=== PATIENT | male | born 1955 | race American Indian/Alaskan Native ===

== ENCOUNTER 2017-02-06 02:32 | Emergency (ER) | payer OTHER ==
[2017-02-06 02:42] VITALS: BP 143/91
[2017-02-06] MEDS: NORCO 5/325 PO ONE (02:54)
[2017-02-06] MEDS ORDERED: NORCO 5/325 ONE (02:54)
--- NOTE | 2017-02-06 04:58 | Emergency Department Report ---
ED General Adult HPI - General Chief complaint: Fall Stated complaint: FALL Time Seen by Provider: 02/06/17 04:23 Source: patient Mode of arrival: Ambulatory Limitations: No Limitations - History of Present Illness Initial comments: pt is a 61 y/o aam with hx of arthritis who presents s/p glf in bathroom landing on left hip today pt denies loc no laceration abrasions or deformities complains of bilat shoulder and left hip pain, pain is 7/10 burning pain is radiating from left low back to left LLE , pt denies weakness no paralysis no loss or decrease in bowel or bladder function, Onset/Timin -: hour(s) Location: back, pelvis, upper extremity Radiation: non-radiation, distal Severity scale (0 -10): 4 Quality: burning, aching Consistency: constant Improves with: rest Worsens with: movement Associated Symptoms: denies: confusion, chest pain, cough, diaphoresis, fever/ chills, headaches, loss of appetite, malaise, nausea/vomiting, rash, seizure, shortness of breath, syncope, weakness Treatments Prior to Arrival: none - Related Data Home Medications Medication Instructions Recorded Confirmed Last Taken Oxycodone HCl/Acetaminophen 1 tab PO DAILY 11/13/14 11/26/14 11/25/14 21:00 [OxyCODONE-Acetaminophen 7.5-325] Tamsulosin HCl [Tamsulosin HCl] 1 tab PO PRN 11/13/14 11/26/14 Unknown Previous Rx's Medication Instructions Recorded Last Taken Type Acetaminophen/Codeine [Tylenol 1 tab PO Q8H PRN #5 tab 02/06/17 Unknown Rx /Codeine # 3 tab] Cyclobenzaprine [Flexeril 10 MG 10 mg PO ONCE PRN #30 tablet 02/06/17 Unknown Rx TAB] Diclofenac Sodium [Voltaren] 1 applic TP TID PRN #1 tube 02/06/17 Unknown Rx Allergies Allergy/AdvReac Type Severity Reaction Status Date / Time No Known Allergies Allergy Unverified 11/06/14 10:56 ED Review of Systems ROS: Stated complaint: FALL Other details as noted in HPI Constitutional: denies: chills, fever Eyes: denies: eye pain, eye discharge, vision change ENT: denies: ear pain, throat pain Respiratory: denies: cough, shortness of breath, wheezing Cardiovascular: denies: chest pain, palpitations Endocrine: no symptoms reported Gastrointestinal: denies: abdominal pain, nausea, diarrhea Genitourinary: denies: urgency, dysuria Musculoskeletal: back pain, arthralgia, myalgia. denies: joint swelling Skin: denies: rash, lesions Neurological: denies: headache, weakness, numbness, paresthesias, confusion, abnormal gait, vertigo Psychiatric: denies: anxiety, depression Hematological/Lymphatic: denies: easy bleeding, easy bruising ED Past Medical Hx - Past Medical History Previous Medical History?: Yes Hx Hypertension: No Hx Heart Attack/AMI: No Hx GERD: Yes Hx Liver Disease: No Hx Renal Disease: No Hx Sickle Cell Disease: No Hx Arthritis: Yes (NECK/BACK) Hx Seizures: No Hx Asthma: No Hx HIV: No - Surgical History Past Surgical History?: Yes Additional Surgical History: left shoulder - Social History Smoking Status: Former Smoker Substance Use Type: Marijuana - Medications Home Medications: Home Medications Medication Instructions Recorded Confirmed Last Taken Type Oxycodone HCl/Acetaminophen 1 tab PO DAILY 11/13/14 11/26/14 11/25/14 21:00 History [OxyCODONE-Acetaminophen 7.5-325] Tamsulosin HCl [Tamsulosin HCl] 1 tab PO PRN 11/13/14 11/26/14 Unknown History Acetaminophen/Codeine [Tylenol 1 tab PO Q8H PRN #5 tab 02/06/17 Unknown Rx /Codeine # 3 tab] Cyclobenzaprine [Flexeril 10 MG 10 mg PO ONCE PRN #30 tablet 02/06/17 Unknown Rx TAB] Diclofenac Sodium [Voltaren] 1 applic TP TID PRN #1 tube 02/06/17 Unknown Rx ED Physical Exam - General Limitations: No Limitations General appearance: alert, in no apparent distress - Head Head exam: Present: atraumatic, normocephalic - Eye Eye exam: Present: normal appearance, PERRL, EOMI Pupils: Present: normal accommodation - ENT ENT exam: Present: normal exam, mucous membranes moist, TM's normal bilaterally , normal external ear exam - Neck Neck exam: Present: normal inspection, full ROM. Absent: tenderness, lymphadenopathy, thyromegaly - Respiratory Respiratory exam: Present: normal lung sounds bilaterally. Absent: respiratory distress, wheezes, chest wall tenderness - Cardiovascular Cardiovascular Exam: Present: regular rate, normal rhythm, normal heart sounds. Absent: systolic murmur, diastolic murmur, rubs, gallop - GI/Abdominal GI/Abdominal exam: Present: soft, normal bowel sounds. Absent: distended, tenderness, guarding, rebound, rigid, organomegaly, mass, bruit, pulsatile mass , hernia - Rectal Rectal exam: Present: deferred - Extremities Exam Extremities exam: Present: tenderness (left lateral hip tenderness no erythema no ecchymosis no swelling no deformity ), normal capillary refill. Absent: pedal edema, joint swelling, calf tenderness - Back Exam Back exam: Present: full ROM, tenderness (left sciatic notch ), CVA tenderness ( R), CVA tenderness (L), paraspinal tenderness. Absent: muscle spasm, vertebral tenderness, rash noted - Expanded Back Exam Expanded Back exam: Absent: saddle anesthesia Back exam: Sciatic Notch Tenderness: Left, Positive Straight Leg Raise: Left, Negative Straight Leg Raising: Right - Neurological Exam Neurological exam: Present: alert, oriented X3, CN II-XII intact, normal gait, reflexes normal. Absent: motor sensory deficit - Expanded Neurological Exam Expanded Patient oriented to: Present: person, place, time Speech: Present: fluid speech Cranial nerves: EOM's Intact: Normal, Gag Reflex: Normal, Tongue Deviation: Normal, Nystagmus: Normal, Facial Sensation: Normal Cerebellar function: Finger to Nose: Normal, Heel to Quinteros: Normal, Romberg: Normal Upper motor neuron: Darrian Neglect: Normal, Pronator Drift: Normal, Babinski Sign : Normal, Sensory Extinction: Normal Sensory exam: Upper Extremity Light Touch: Normal, Upper Extremity Pin Prick: Normal, Upper Extremity Temperature: Normal, UE 2 Point Discrimination: Normal, Lower Extremity Light Touch: Normal, Lower Extremity Pin Prick: Normal, Lower Extremity Temperature: Normal, LE 2 Point Discrimination: Normal Motor strength exam: RUE: 5, LUE: 5, RLE: 5, LLE: 5 DTR: bicep (R): 2+, bicep (L): 2+, tricep (R): 2+, tricep (L): 2+, knee (R): 2+ , knee (L): 2+, ankle (R): 2+, ankle (L): 2+ Best Eye Response (Aleksandra): (4) open spontaneously Best Motor Response (Aleksandra): (6) obeys commands Best Verbal Response (Aleksandra): (5) oriented Aleksandra Total: 15 - Psychiatric Psychiatric exam: Present: normal affect, normal mood - Skin Skin exam: Present: warm, dry, intact, normal color. Absent: rash ED Course Vital Signs 02/06/17 02:38 Temperature 98.6 F Pulse Rate 95 H Respiratory 17 Rate Blood Pressure 143/91 O2 Sat by Pulse 98 Oximetry ED Medical Decision Making - Radiology Data Radiology results: image reviewed no acute fracture, arthritic changes - Medical Decision Making pt is a 61 y/o aam with hx of arthritis who presents s/p glf in bathroom landing on left hip today pt denies loc no laceration abrasions or deformities complains of bilat shoulder and left hip pain, pain is 7/10 burning pain is radiating from left low back to left LLE , pt denies weakness no paralysis no loss or decrease in bowel or bladder function, exam: this is nontoxic appearing well hydrated well nourish aam bilat shoulder rom intact with minimal pain there is no swelling no deformity no ecchymosid testing tech equal shoulder drop, and rotation intact without weakness, LLE, noted mild left lateral low back muscle pain to deep palpation that radiates to buttock nad LLE there is no hip bursitis no swelling on deformity , pain is improved from 7/10 to 3/10 with ketorolac and flexeril given in ed plan : dc to self with short burst of Voltaren gel, tylenol #3 short burst, flexeril , pt will continue gabapentin as prescribed will follow up with Dr. Chowdary in 3 days pt verbalized agreement and understanding with discharge plan. Critical care attestation.: If time is entered above; I have spent that time in minutes in the direct care of this critically ill patient, excluding procedure time. ED Disposition Clinical Impression: Fall Qualifiers: Encounter type: initial encounter Qualified Code(s): W19.XXXA - Unspecified fall, initial encounter Disposition: DC-01 TO HOME OR SELFCARE Is pt being admited?: No Does the pt Need Aspirin: No Condition: Good Instructions: Sciatica (ED) Prescriptions: Acetaminophen/Codeine [Tylenol /Codeine # 3 tab] 1 tab PO Q8H PRN #5 tab PRN Reason: severe pain Cyclobenzaprine [Flexeril 10 MG TAB] 10 mg PO ONCE PRN #30 tablet PRN Reason: Muscle Spasm Diclofenac Sodium [Voltaren] 1 applic TP TID PRN #1 tube PRN Reason: Pain Referrals: PRIMARY CARE,MD [Primary Care Provider] - 3-5 Days Forms: Work/School Release Form(ED) Time of Disposition: 05:18
[2017-02-06] MEDS: TORADOL IM ONE (05:06)
[2017-02-06] MEDS: FLEXERIL PO ONE (05:06)
--- NOTE | 2017-02-06 05:28 | XRay Report ---
FINAL REPORT PROCEDURE: XR SHOULDER BILAT 2+V TECHNIQUE: BILATERAL shoulder radiographs including AP views in internal and external rotation and abduction. HISTORY: Fall, c/o L R Shoulder Pn, L Hip pn, Get Report COMPARISON: No prior studies are available for comparison. FINDINGS: Fracture(s) and/or Dislocation(s): None. Joint space(s): There is mild degenerative arthrosis of the glenohumeral joints bilaterally. There is a small spur of the right acromion process. There is evidence of previous rotator cuff repair surgery on the left with numerous radiopaque anchors in the left humeral head. Soft tissues: Normal. Bone mineralization: Normal. Foreign bodies: None. IMPRESSION: There are no fractures or malalignments. There is mild degenerative arthrosis of the glenohumeral joints bilaterally. There is a small spur of the right acromion process. There is evidence of previous rotator cuff repair surgery on the left with numerous radiopaque anchors in the left humeral head. Soft tissues are within normal limits.
--- NOTE | 2017-02-06 07:57 | XRay Report ---
FINAL REPORT PROCEDURE: XR HIP 2-3V LT TECHNIQUE: LEFT hip radiographs, AP and lateral views. HISTORY: Fall, c/o L R Shoulder Pn, L Hip pn, Get Report COMPARISON: No prior studies are available for comparison. FINDINGS: Fracture (s) and/or Dislocation(s): None . Joint space(s): There is moderate degenerative arthrosis of the left hip joint.. Soft tissues: Normal . Bone mineralization: Normal . Foreign bodies: None . IMPRESSION: There is degenerative arthrosis of the left hip. There is no fracture or dislocation..
== END 2017-02-06 05:20 | disposition home or self-care (01) ==
LOC: ED 02:32
DX: M25.552 Pain in left hip (principal); M25.511 Pain in right shoulder; K21.9 Gastro-esophageal reflux disease without esophagitis; M25.512 Pain in left shoulder; W01.0XXA Fall on same level from slipping, tripping and stumbling without subsequent striking against object, initial encounter; Y93.89 Activity, other specified; Y92.89 Other specified places as the place of occurrence of the external cause; Y99.8 Other external cause status
CPT/HCPCS: 73030; 73502; 96372; 99283; J1885

== ENCOUNTER 2017-10-17 19:14 | Emergency (ER) | payer OTHER ==
[2017-10-17 20:35] LABS: Basophils # (Auto) 0.1 K/mm3 (0.0-0.1); Basophils % (Auto) 1.1 % (0.0-1.8); Eosinophils # (Auto) 0.1 K/mm3 (0.0-0.4); Eosinophils % (Auto) 2.2 % (0.0-4.3); Hematocrit 40.3 % (35.5-45.6); Lymphocytes # (Auto) 2.2 K/mm3 (1.2-5.4); Mean Corpuscular HGB Conc 32 % (32-34); Mean Corpuscular Hemoglobin 27 pg (28-32); Mean Corpuscular Volume 84 fl (84-94); Monocytes # (Auto) 0.6 K/mm3 (0.0-0.8); Monocytes % (Auto) 11.1 % (0.0-7.3); Platelet Count 177 K/mm3 (140-440); Red Blood Count 4.79 M/mm3 (3.65-5.03)
--- NOTE | 2017-10-17 20:53 | Emergency Department Report ---
ED Medical Clearance HPI - General Chief complaint: Medical Clearance Stated complaint: LOWER BACK PAIN Time Seen by Provider: 10/17/17 20:43 Source: patient Mode of arrival: Ambulatory - History of Present Illness Initial comments: Patient is 61 years old male with a history of alcohol abuse and drug abuse mainly marijuana and cocaine. Patient presented to the ER after he checked into [facility] for alcohol and drug rehabilitation and he was asked to come to the ER for medical clearance. Patient denied any symptoms. Patient stated that he been drinking for the last 48 hours and using cocaine and marijuana also. He denied any suicidal, homicidal ideation. No visual or auditory hallucination. Patient stated that he did not have any history of psychiatric problem before. MD Complaint: medical clearance request Home medications: Home Medications Medication Instructions Recorded Confirmed Last Taken Oxycodone HCl/Acetaminophen 1 tab PO DAILY 11/13/14 11/26/14 11/25/14 21:00 [OxyCODONE-Acetaminophen 7.5-325] Tamsulosin HCl 1 tab PO PRN 11/13/14 11/26/14 Unknown Previous Rx's Medication Instructions Recorded Last Taken Type Acetaminophen/Codeine [Tylenol 1 tab PO Q8H PRN #5 tab 02/06/17 Unknown Rx /Codeine # 3 tab] Cyclobenzaprine [Flexeril 10 MG 10 mg PO ONCE PRN #30 tablet 02/06/17 Unknown Rx TAB] Diclofenac Sodium [Voltaren] 1 applic TP TID PRN #1 tube 02/06/17 Unknown Rx Allergies/Adverse reactions: Allergies Allergy/AdvReac Type Severity Reaction Status Date / Time No Known Allergies Allergy Unverified 11/06/14 10:56 ED Review of Systems ROS: Stated complaint: LOWER BACK PAIN Other details as noted in HPI Comment: All other systems reviewed and negative Constitutional: denies: chills, fever Respiratory: denies: cough, orthopnea, shortness of breath, SOB with exertion, SOB at rest, wheezing Cardiovascular: denies: chest pain, palpitations, dyspnea on exertion Gastrointestinal: denies: abdominal pain, nausea, vomiting, diarrhea Genitourinary: denies: urgency Neurological: denies: headache, weakness, numbness, paresthesias, confusion, abnormal gait Psychiatric: depression. denies: auditory hallucinations, visual hallucinations , homicidal thoughts, suicidal thoughts ED Past Medical Hx - Past Medical History Hx Hypertension: No Hx Heart Attack/AMI: No Hx GERD: Yes Hx Liver Disease: No Hx Renal Disease: No Hx Sickle Cell Disease: No Hx Arthritis: Yes (NECK/BACK) Hx Seizures: No Hx Asthma: No Hx HIV: No - Surgical History Additional Surgical History: left shoulder, L leg - Social History Smoking Status: Current Every Day Smoker Substance Use Type: Alcohol, Cocaine, Marijuana - Medications Home Medications: Home Medications Medication Instructions Recorded Confirmed Last Taken Type Oxycodone HCl/Acetaminophen 1 tab PO DAILY 11/13/14 11/26/14 11/25/14 21:00 History [OxyCODONE-Acetaminophen 7.5-325] Tamsulosin HCl 1 tab PO PRN 11/13/14 11/26/14 Unknown History Acetaminophen/Codeine [Tylenol 1 tab PO Q8H PRN #5 tab 02/06/17 Unknown Rx /Codeine # 3 tab] Cyclobenzaprine [Flexeril 10 MG 10 mg PO ONCE PRN #30 tablet 02/06/17 Unknown Rx TAB] Diclofenac Sodium [Voltaren] 1 applic TP TID PRN #1 tube 02/06/17 Unknown Rx ED Physical Exam - General Limitations: No Limitations General appearance: alert, in no apparent distress - Head Head exam: Present: atraumatic, normocephalic, normal inspection - Eye Eye exam: Present: normal appearance - ENT ENT exam: Present: normal exam, normal orophraynx, mucous membranes moist - Neck Neck exam: Present: normal inspection, full ROM. Absent: tenderness, meningismus, lymphadenopathy, thyromegaly - Respiratory Respiratory exam: Present: normal lung sounds bilaterally - Cardiovascular Cardiovascular Exam: Present: regular rate, normal rhythm, normal heart sounds - GI/Abdominal GI/Abdominal exam: Present: soft, normal bowel sounds. Absent: distended, tenderness, guarding, rebound, rigid, organomegaly, mass, bruit, pulsatile mass - Extremities Exam Extremities exam: Present: normal inspection, full ROM, normal capillary refill. Absent: calf tenderness - Back Exam Back exam: Present: normal inspection, full ROM - Neurological Exam Neurological exam: Present: alert, oriented X3, CN II-XII intact, normal gait, reflexes normal. Absent: motor sensory deficit - Skin Skin exam: Present: warm, intact, normal color ED Course Vital Signs 10/17/17 10/17/17 10/17/17 19:30 23:21 23:28 Temperature 98.2 F 98 F Pulse Rate 82 65 Respiratory 20 16 16 Rate Blood Pressure 128/77 Blood Pressure 136/74 [Right] O2 Sat by Pulse 98 99 Oximetry 10/17/17 10/18/17 23:58 05:02 Temperature 97.5 F L Pulse Rate 63 Respiratory 16 18 Rate Blood Pressure Blood Pressure 141/79 [Right] O2 Sat by Pulse 98 Oximetry ED Medical Decision Making - Lab Data Result diagrams: 10/17/17 19:51 10/17/17 19:51 - Medical Decision Making Recently evaluated by our psychiatric team and advised patient can be referred as an outpatient to [facility] for his alcohol and drug rehabilitation. ED Disposition Clinical Impression: Alcohol abuse, Cocaine abuse, Depression Disposition: DC/TX-65 PSY HOSP/PSY UNIT Is pt being admited?: No Condition: Stable Instructions: Abuse of Alcohol (ED), Polysubstance Abuse (ED) Referrals: PRIMARY CARE, [Primary Care Provider] - 3-5 Days
[2017-10-17 21:03] LABS: BUN/Creatinine Ratio 13; Blood Urea Nitrogen 16 mg/dL (9-20); Calcium 9.1 mg/dL (8.4-10.2); Hemolysis Index 1
[2017-10-17 21:23] LABS: Bilirubin,Urine NEG (Negative); Blood,Urine NEG (Negative); Color,Urine Yellow (Yellow); Mucus,Urine FEW /HPF; Protein,Urine <15 mg/dL mg/dL (Negative); WBC,Urine < 1.0 /HPF (0.0-6.0)
[2017-10-17 21:32] LABS: Amphetamine Screen,Urine PRESUMPTIVE NEGATIVE; Benzodiazepines Screen,Urine PRESUMPTIVE NEGATIVE; Cannabinoid Screen,Urine PRESUMPTIVE NEGATIVE; Methadone Screen,Urine PRESUMPTIVE NEGATIVE; Opiate Screen,Urine PRESUMPTIVE NEGATIVE
[2017-10-17 21:46] LABS: Cocaine Screen,Urine PRESUMPTIVE POSITIVE
[2017-10-17] MEDS ORDERED: TORADOL IM ONE (23:19)
[2017-10-18 05:03] VITALS: BP 141/79
== END 2017-10-18 05:07 ==
LOC: ED 19:14
DX: F10.10 Alcohol abuse, uncomplicated (principal); F14.10 Cocaine abuse, uncomplicated; F32.9 Major depressive disorder, single episode, unspecified; K21.9 Gastro-esophageal reflux disease without esophagitis; M19.90 Unspecified osteoarthritis, unspecified site; F17.200 Nicotine dependence, unspecified, uncomplicated
CPT/HCPCS: 36415; 80048; 80307; 81001; 85025; 96372; 99284; G0480; J1885; 80320

== ENCOUNTER 2018-12-10 13:11 | Outpatient (CLI) | payer OTHER ==
--- NOTE | 2018-12-10 14:14 | XRay Report ---
RIGHT ELBOW 3 VIEWS INDICATION: ELBOW PAIN. COMPARISON: No relevant prior imaging study available. 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 Enthesophytes are seen at the olecranon attac hment of the distal triceps. Olecranon osteophytes are noted. Is difficult to exclude intra-articular osteochondral bodies in the olecranon recess. No acute, displaced fracture, dislocation, or joint effusion. IMPRESSION: 1. No acute findings. 2. Degenerative and enthesopathic changes, as above. Signer Name: Claudio Mcdonald MD Signed: 12/10/2018 2:10 PM Workstation Name: [id number]
--- NOTE | 2018-12-10 14:14 | XRay Report ---
LEFT SCAPULA 3 VIEWS INDICATION / CLINICAL INFORMATION: SHOULDER PAIN. COMPARISON: None available. FINDINGS: Moderately advanced degenerative change in the glenohumeral joint. Multiple bone anchors are also pre sent. No other significant skeletal abnormality. Signer Name: Oz Siddiqui MD FACSola Signed: 12/10/2018 2:09 PM Workstation Name: [id number]
== END 2018-12-10 13:12 | disposition home or self-care (01) ==
LOC: XRAY 13:11
PROVIDERS: ATTEND Orthopaedic Surgery
DX: M19.021 Primary osteoarthritis, right elbow (principal); M19.012 Primary osteoarthritis, left shoulder; K21.9 Gastro-esophageal reflux disease without esophagitis